=== PATIENT | male | born 2000 | race Caucasian/White ===

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

== ENCOUNTER 2019-10-29 20:17 | Emergency (ER) | payer OTHER ==
[~2019-10-29] VITALS: Ht 182.9 cm; Wt 104.3 kg
[2019-10-29 21:25] VITALS: BP 125/75
== END 2019-10-29 21:27 | disposition home or self-care (01) ==
LOC: M.ERS 20:17
DX: R50.9 Fever, unspecified (principal); F17.220 Nicotine dependence, chewing tobacco, uncomplicated; Z88.1 Allergy status to other antibiotic agents